=== PATIENT | female | born 1965 | race Two or more races ===

== ENCOUNTER 2018-10-23 10:49 | Emergency (ER) | payer MEDICAID ==
[~2018-10-23] VITALS: Ht 160 cm; Wt 81.6 kg
[2018-10-23 12:00] VITALS: BP 129/48
== END 2018-10-23 12:31 | disposition home or self-care (01) ==
LOC: ER 10:49
DX: J20.9 Acute bronchitis, unspecified (principal); E78.5 Hyperlipidemia, unspecified; Z86.73 Personal history of transient ischemic attack (TIA), and cerebral infarction without residual deficits

== ENCOUNTER 2019-11-06 20:15 | Emergency (ER) | payer MEDICAID ==
[~2019-11-06] VITALS: Ht 160 cm; Wt 85.7 kg
[2019-11-06 20:55] VITALS: BP 168/74
== END 2019-11-06 22:25 | disposition left against medical advice (07) ==
LOC: ER 20:17
DX: M54.9 Dorsalgia, unspecified (principal); Z53.21 Procedure and treatment not carried out due to patient leaving prior to being seen by health care provider

== ENCOUNTER 2022-03-28 02:14 | Emergency (ER) | payer MEDICAID, OTHER ==
[~2022-03-28] VITALS: Ht 160 cm; Wt 88.5 kg
[2022-03-28] MEDS ORDERED: KETOROLAC TROMETH 60MG/2ML VIAL IM ONE (02:30)
[2022-03-28 04:52] VITALS: BP 178/89
== END 2022-03-28 04:52 | disposition home or self-care (01) ==
LOC: ER 02:14
DX: M79.18 Myalgia, other site (principal); R07.9 Chest pain, unspecified; V43.62XA Car passenger injured in collision with other type car in traffic accident, initial encounter; Y92.098 Other place in other non-institutional residence as the place of occurrence of the external cause; Y99.8 Other external cause status
CPT/HCPCS: 71120; 96372; 99283; J1885